=== PATIENT | male | born 1945 | race Caucasian/White ===

== ENCOUNTER 2017-10-07 12:48 | Observation (INO) | payer OTHER ==
[2017-10-07] MEDS ORDERED: METOPROLOL TARTRATE 5 MG/5 ML INJ IV ONE (13:21)
[2017-10-07] MEDS ORDERED: ENOXAPARIN 80 MG/0.8 ML SQ ONE (13:21)
[2017-10-07 13:42] LABS: Absolute Lymphocytes (CBC) 1.8 K/uL (0.7-4.9); Absolute Monocytes 0.7 K/uL (0.1-1.3); Absolute Neutrophil 4.5 K/uL (1.8-8.0); Basophils % 0.8 % (0-1.3); Eosinophils % 1.1 % (0-4.4); Lymphocytes % 24.8 % (15.3-44.8); MCV 93.5 fL (80-100); Monocytes % 10.4 % (3.3-12.3); RBC Red Blood Cell Count 5.34 M/uL (4.33-5.43)
[2017-10-07 13:46] LABS: Protime INR 1.18
[2017-10-07] MEDS ORDERED: METOPROLOL TAR 25 MG TAB ONE (13:56)
[2017-10-07 14:00] LABS: Albumin 4.2 g/dL (3.4-5.0); Bilirubin Direct 0.8 mg/dL (0-0.2); Bilirubin Total 2.4 mg/dL (0.2-1.0); CKMB Creatine Kinase MB 4.2 ng/mL (0.3-3.6); Magnesium 2.2 mg/dL (1.8-2.4); Potassium 3.9 mmol/L (3.5-5.1); Protein, Total 7.4 g/dL (6.4-8.2)
[2017-10-07] MEDS ORDERED: ASPIRIN 81 MG CHEWABLE TABLET ONE (14:12)
--- NOTE | 2017-10-07 14:21 | RAD REPORT ---
EXAM DESCRIPTION: RAD - Chest Single View - 10/07/2017 2:03 pm CLINICAL HISTORY: CHEST PAIN Chest pain. COMPARISON: CHEST SINGLE VIEW dated 08/16/2014 FINDINGS: Portable technique limits examination quality. Moderate pleural and parenchymal opacification in the right base is noted, probably representing pneu monia with pleural effusion. Significant cardiomegaly seen. No displaced fractures. IMPRESSION: Right lung base pleural and parenchymal opacification likely represents pneumonia.
[2017-10-07] MEDS ORDERED: ONDANSETRON 4 MG/2 ML VIAL IV PRN (14:25)
[2017-10-07] MEDS ORDERED: ACETAMINOPHEN 500 MG TAB PO PRN (14:25)
--- NOTE | 2017-10-07 14:46 | EDPHYS ---
Physician Documentation [facility] Name: Omid Huerta Age: 72 yrs Sex: Male : 1945 Arrival Date: 10/07/2017 Time: 12:52 Bed 3 Private MD: ED Physician Onesimo Dunn HPI: 10/08 07:11 This 72 yrs old Male presents to ER via Ambulatory with complaints of Fast kdr Heart Rate. 07:11 The patient presents with a history of irregular heart beat, heart racing. Context: The kdr symptoms occur at rest. Onset: The symptoms/episode began/occurred at an unknown time. Duration: The patient or guardian reports a single episode, that is still ongoing. Associated signs and symptoms: Pertinent positives: Abdominal pain. Severity of symptoms: At their worst the symptoms were mild in the emergency department the symptoms are unchanged. The patient has not experienced similar symptoms in the past. The patient has been recently seen by a physician: That patient had gone to the [place] because his stomach was hurting and they took his VS and sent him to the ED. Historical: - Allergies: 10/07 13:02 No Known Allergies; aj1 - Home Meds: 13:02 None [Active]; aj1 - PMHx: 13:02 None; aj1 - PSHx: 13:02 None; aj1 - Immunization history:: Flu vaccine is not up to date. - Social history:: Smoking status: Patient/guardian denies using tobacco. - Ebola Screening: : Patient denies travel to an Ebola-affected area in the 21 days before illness onset. ROS: 10/08 07:11 Constitutional: Negative for fever, chills, and weight loss, Eyes: Negative for injury, kdr pain, redness, and discharge, ENT: Negative for injury, pain, and discharge, Neck: Negative for injury, pain, and swelling, Respiratory: Negative for shortness of breath, cough, wheezing, and pleuritic chest pain, Abdomen/GI: Negative for abdominal pain, nausea, vomiting, diarrhea, and constipation, Back: Negative for injury and pain, : Negative for injury, bleeding, discharge, and swelling, MS/Extremity: Negative for injury and deformity, Skin: Negative for injury, rash, and discoloration, Neuro: Negative for headache, weakness, numbness, tingling, and seizure activity. Psych: Negative for depression, anxiety, suicide ideation, homicidal ideation, and hallucinations, Allergy/Immunology: Negative for hives, rash, and allergies, Endocrine: Negative for neck swelling, polydipsia, polyuria, polyphagia, and marked weight changes, Hematologic/Lymphatic: Negative for swollen nodes, abnormal bleeding, and unusual bruising. Cardiovascular: Positive for palpitations, Negative for edema, orthopnea, palpitations, paroxysmal nocturnal dyspnea. Exam: 07:11 Constitutional: This is a well developed, well nourished patient who is awake, alert, kdr and in no acute distress. Head/Face: Normocephalic, atraumatic. Eyes: Pupils equal round and reactive to light, extra-ocular motions intact. Lids and lashes normal. Conjunctiva and sclera are non-icteric and not injected. Cornea within normal limits. Periorbital areas with no swelling, redness, or edema. Neck: Trachea midline, no thyromegaly or masses palpated, and no cervical lymphadenopathy. Supple, full range of motion without nuchal rigidity, or vertebral point tenderness. No Meningismus. Chest/axilla: Normal chest wall appearance and motion. Nontender with no deformity. No lesions are appreciated. Respiratory: Lungs have equal breath sounds bilaterally, clear to auscultation and percussion. No rales, rhonchi or wheezes noted. No increased work of breathing, no retractions or nasal flaring. Abdomen/GI: Soft, non-tender, with normal bowel sounds. No distension or tympany. No guarding or rebound. No evidence of tenderness throughout. Back: No spinal tenderness. No costovertebral tenderness. Full range of motion. Skin: Warm, dry with normal turgor. Normal color with no rashes, no lesions, and no evidence of cellulitis. MS/ Extremity: Pulses equal, no cyanosis. Neurovascular intact. Full, normal range of motion. Neuro: Awake and alert, GCS 15, oriented to person, place, time, and situation. Cranial nerves II-XII grossly intact. Motor strength 5/5 in all extremities. Sensory grossly intact. Cerebellar exam normal. Normal gait. Psych: Awake, alert, with orientation to person, place and time. Behavior, mood, and affect are within normal limits. 07:11 Cardiovascular: Rate: tachycardic, Rhythm: irregularly irregular, Pulses: no pulse deficits are appreciated, Heart sounds: normal, Edema: is not appreciated, JVD: is not appreciated. Vital Signs: 10/07 13:02 BP 174 / 137; Pulse 148; Resp 20; Temp 98.8; Pulse Ox 96% on R/A; Weight 83.91 kg (R); aj1 Height 6 ft. 0 in. (182.88 cm) (R); Pain 0/10; 13:30 BP 176 / 102; Pulse 96; Resp 18; Pulse Ox 98% on R/A; sv 14:03 BP 126 / 98; Pulse 72; Resp 20; Pulse Ox 97% on R/A; sv 15:25 BP 122 / 95; Pulse 74; Resp 19; Pulse Ox 97% on R/A; sv 13:02 Body Mass Index 25.09 (83.91 kg, 182.88 cm) aj1 MDM: 14:45 Patient medically screened. kdr 10/08 07:11 Data reviewed: vital signs, nurses notes, lab test result(s), EKG, radiologic studies. kdr Counseling: I had a detailed discussion with the patient and/or guardian regarding: the historical points, exam findings, and any diagnostic results supporting the discharge/admit diagnosis, lab results, radiology results, the need for further work-up and treatment in the hospital. 10/07 13:27 Order name: Basic Metabolic Panel; Complete Time: 14:14 kdr 10/07 13:27 Order name: CBC with Diff; Complete Time: 13:59 kdr 10/07 13:27 Order name: Ckmb; Complete Time: 14:14 kdr 10/07 13:27 Order name: CPK; Complete Time: 14:14 kdr 10/07 13:27 Order name: LFT's; Complete Time: 14:14 kdr 10/07 13:27 Order name: Magnesium; Complete Time: 14:14 kdr 10/07 13:27 Order name: NT PRO-BNP; Complete Time: 14:14 kdr 10/07 13:27 Order name: PT-INR; Complete Time: 13:59 kdr 10/07 13:27 Order name: Ptt, Activated; Complete Time: 13:59 kdr 10/07 13:27 Order name: Troponin (emerg Dept Use Only); Complete Time: 14:14 kdr 10/07 14:36 Order name: Procalcitonin EDMS 10/07 14:36 Order name: Thyroid Stimulating Hormone EDMS 10/07 14:36 Order name: T4 Free EDMS 10/07 14:36 Order name: Thyroid Stimulating Hormone EDMS 10/07 14:36 Order name: Urinalysis EDMS 10/07 14:36 Order name: CBC with Automated Diff EDMS 10/07 14:36 Order name: CBC with Automated Diff EDMS 10/07 14:36 Order name: CBC with Automated Diff EDMS 10/07 14:36 Order name: CBC with Automated Diff EDMS 10/07 14:36 Order name: CKMB Creatine Kinase MB EDMS 10/07 14:36 Order name: CKMB Creatine Kinase MB EDMS 10/07 14:36 Order name: CKMB Creatine Kinase MB EDMO 10/07 14:36 Order name: Comprehensive Metabolic Panel EDMO 10/07 14:36 Order name: Comprehensive Metabolic Panel EDMO 10/07 14:36 Order name: Comprehensive Metabolic Panel EDMO 10/07 14:36 Order name: Comprehensive Metabolic Panel EDMO 10/07 14:36 Order name: Creatine Phosphokinase EDMO 10/07 14:37 Order name: Creatine Phosphokinase EDMO 10/07 14:37 Order name: Creatine Phosphokinase EDMO 10/07 13:27 Order name: XRAY Chest (1 view) kdr 10/07 13:27 Order name: EKG; Complete Time: 13:28 kdr 10/07 13:27 Order name: Cardiac monitoring; Complete Time: 13:37 kdr 10/07 13:27 Order name: EKG - Nurse/Tech; Complete Time: 13:37 kdr 10/07 13:27 Order name: IV Saline Lock; Complete Time: 13:37 kdr 10/07 13:27 Order name: Labs collected and sent; Complete Time: 13:37 kdr 10/07 13:27 Order name: O2 Per Protocol; Complete Time: 13:37 kdr 10/07 13:47 Order name: US Extremity Venous W Compression Daren kdr 10/07 14:06 Order name: EKG; Complete Time: 14:06 sv 10/07 14:16 Order name: CT Chest For PE Angio kdr 10/07 14:36 Order name: CONS Physician Consult EDMO 10/07 14:36 Order name: Respiratory Therapy Consult EDMO 10/07 14:36 Order name: Heart Healthy EDMO 10/07 14:36 Order name: Echo with Doppler EDMO 10/07 14:37 Order name: Lipid Profile [facility] 10/07 14:37 Order name: Lipid Profile [facility] 10/07 14:37 Order name: Magnesium [facility] 10/07 14:37 Order name: Magnesium [facility] 10/07 14:37 Order name: Magnesium [facility] 10/07 14:37 Order name: Magnesium [facility] 10/07 14:37 Order name: Troponin I [facility] 10/07 14:37 Order name: Troponin I [facility] 10/07 14:37 Order name: Troponin I [facility] 10/07 14:37 Order name: Blood Culture [facility] 10/07 14:37 Order name: Chest Pa And Lat (2 Views) [facility] 10/07 14:37 Order name: Chest Pa And Lat (2 Views) [facility] 10/07 13:27 Order name: O2 Sat Monitoring; Complete Time: 13:37 kdr 10/07 14:06 Order name: EKG - Nurse/Tech; Complete Time: 16:33 sv Administered Medications: 10/07 13:20 Drug: Lopressor 5 mg Route: IVP; Site: right antecubital; sv 13:35 Follow up: Response: No adverse reaction sv 13:20 Drug: Lovenox 1 mg/kg Route: Sub-Q; Site: right lower abdomen; sv 13:49 Follow up: Response: No adverse reaction sv 13:44 Drug: Lopressor 2.5 mg Route: IVP; Site: right antecubital; sv 14:04 Follow up: Response: No adverse reaction sv 13:49 CANCELLED (Duplicate Order): Lopressor 5 mg IVP every 5 minutes; Hold for SBP < 100 or sv HR < 60. x3 13:55 Drug: Lopressor 25 mg Route: PO; sv 14:05 Follow up: Response: No adverse reaction sv 14:25 Drug: Aspirin Chewable Tablet 324 mg Route: PO; sv 14:57 Follow up: Response: No adverse reaction sv Disposition: 10/07/17 14:45 Hospitalization ordered by Fercho Domingo for Inpatient Admission. Preliminary diagnosis is Atrial fibrillation, hypertension. - Bed requested for Telemetry/MedSurg (Inpatient). - Status is Inpatient Admission. sv - Condition is Fair. - Problem is an ongoing problem. - Symptoms have improved. UTI on Admission? No Signatures: Dispatcher [employer] Emerald Cruz RN RN aj1 Ruby Navarro RN RN sv Onesimo Dunn MD MD [facility] Shasta Strong Corrections: (The following items were deleted from the chart) 13:49 13:43 Lopressor 5 mg IVP every 5 minutes; Hold for SBP < 100 or HR < 60. x3 ordered. kdrsv 14:37 14:36 T4 Free ordered. EDMS EDMS 15:04 14:45 Hospitalization Ordered by Fercho Domingo DO for Inpatient Admission. Preliminary ag diagnosis is Atrial fibrillation, hypertension. Bed requested for Telemetry/MedSurg (Inpatient). Status is Inpatient Admission. Condition is Fair. Problem is an ongoing problem. Symptoms have improved. UTI on Admission? No. kdr 15:49 15:04 10/07/2017 14:45 Hospitalization Ordered by Fercho Domingo DO for Inpatient sv Admission. Preliminary diagnosis is Atrial fibrillation, hypertension. Bed requested for Telemetry/MedSurg (Inpatient). Status is Inpatient Admission. Condition is Fair. Problem is an ongoing problem. Symptoms have improved. UTI on Admission? No. ag
--- NOTE | 2017-10-07 14:46 | ER ---
Nurse's Notes [facility] Name: Omid Huerta Age: 72 yrs Sex: Male : 1945 Arrival Date: 10/07/2017 Time: 12:52 Bed 3 Private MD: Diagnosis: Atrial fibrillation, hypertension Presentation: 10/07 13:00 Presenting complaint: Patient states: He went to see his doctor because his stomach was aj1 hurting but when he got there his doctor said that his heart rate was too high and to come the the ER. Denies CP. Reports SOB. Transition of care: patient was not received from another setting of care. Onset of symptoms was October 07, 2017. Risk Assessment: Do you want to hurt yourself or someone else? Patient reports no desire to harm self or others. Initial Sepsis Screen: Does the patient meet any 2 criteria? HR > 90 bpm. No. Patient's initial sepsis screen is negative. Does the patient have a suspected source of infection? No. Patient's initial sepsis screen is negative. Care prior to arrival: None. 13:00 Method Of Arrival: Ambulatory aj1 13:00 Acuity: LAQUITA 2 aj1 Triage Assessment: 13:02 General: Appears in no apparent distress. comfortable, Behavior is calm, cooperative, aj1 appropriate for age. Pain: Denies pain. Neuro: Level of Consciousness is awake, alert, obeys commands. Cardiovascular: Patient's skin is warm and dry. Respiratory: Airway is patent Respiratory effort is even, unlabored, Respiratory pattern is regular, symmetrical. GI: Reports bloating. Derm: Skin is pink, warm \T\ dry. normal. Historical: - Allergies: 13:02 No Known Allergies; aj1 - Home Meds: 13:02 None [Active]; aj1 - PMHx: 13:02 None; aj1 - PSHx: 13:02 None; aj1 - Immunization history:: Flu vaccine is not up to date. - Social history:: Smoking status: Patient/guardian denies using tobacco. - Ebola Screening: : Patient denies travel to an Ebola-affected area in the 21 days before illness onset. Screenin:10 Abuse screen: Denies threats or abuse. Denies injuries from another. Nutritional sv screening: No deficits noted. Tuberculosis screening: No symptoms or risk factors identified. Fall Risk None identified. Assessment: 13:10 General: Appears in no apparent distress. comfortable, Behavior is calm, cooperative, sv appropriate for age. Pain: Denies pain. Neuro: Level of Consciousness is awake, alert, obeys commands, Oriented to person, place, time, situation, Moves all extremities. Full function Gait is steady, Speech is normal. Cardiovascular: Heart tones S1 S2 present Patient's skin is warm and dry. Pulses are 3+ in right radial artery and left radial artery Edema is 2+ to left midcalf, left ankle, left foot, left toes, right midcalf, right ankle, right foot and right toes pitting to left midcalf, left ankle, left foot, left toes, right midcalf, right ankle, right foot and right toes Rhythm is atrial fibrillation with rapid ventricular response. Respiratory: Airway is patent Respiratory effort is even, unlabored, Respiratory pattern is regular, symmetrical, Breath sounds are clear bilaterally. Denies shortness of breath. GI: Abdomen is flat, Reports problems eating at times. Derm: Skin is pink, warm \T\ dry. Musculoskeletal: Range of motion: intact in all extremities. 13:44 Reassessment: Patient appears in no apparent distress at this time. Patient and/or sv family updated on plan of care and expected duration. Pain level reassessed. Patient is alert, oriented x 3, equal unlabored respirations, skin warm/dry/pink. 14:25 Reassessment: Patient appears in no apparent distress at this time. Patient and/or sv family updated on plan of care and expected duration. Pain level reassessed. Patient is alert, oriented x 3, equal unlabored respirations, skin warm/dry/pink. Patient states symptoms have improved. 15:15 Reassessment: Patient appears in no apparent distress at this time. Patient and/or sv family updated on plan of care and expected duration. Pain level reassessed. Patient is alert, oriented x 3, equal unlabored respirations, skin warm/dry/pink. Patient states symptoms have improved. Vital Signs: 13:02 BP 174 / 137; Pulse 148; Resp 20; Temp 98.8; Pulse Ox 96% on R/A; Weight 83.91 kg (R); aj1 Height 6 ft. 0 in. (182.88 cm) (R); Pain 0/10; 13:30 BP 176 / 102; Pulse 96; Resp 18; Pulse Ox 98% on R/A; sv 14:03 BP 126 / 98; Pulse 72; Resp 20; Pulse Ox 97% on R/A; sv 15:25 BP 122 / 95; Pulse 74; Resp 19; Pulse Ox 97% on R/A; sv 13:02 Body Mass Index 25.09 (83.91 kg, 182.88 cm) aj1 Vitals: 13:30 Cardiac Rhythm Assessment Atrial fibrillation. sv 14:26 Cardiac Rhythm Assessment Atrial flutter. sv ED Course: 12:52 Patient arrived in ED. mr 13:02 Triage completed. aj1 13:02 Arm band placed on Patient placed in an exam room, on electronic device monitor, on pulse aj1 oximetry. 13:10 Onesimo Dunn MD is Attending Physician. kdr 13:10 Patient has correct armband on for positive identification. Placed in gown. Bed in low sv position. security monitor on. Pulse ox on. NIBP on. Door closed. Head of bed elevated. 13:10 Initial lab(s) drawn, by hi, sent to lab. Inserted saline lock: 18 gauge in right sv antecubital area, using aseptic technique. ,using aseptic technique. done by Dorie STRINGER Blood collected. 13:15 Ruby Navarro, SIOMARA is Primary Nurse. sv 13:19 EKG done, by help desk technician. reviewed by Onesimo Dunn MD. sm3 13:56 X-ray(s) taken. sv 14:01 X-ray completed. Portable x-ray completed in exam room. Patient tolerated procedure kw well. 14:03 XRAY Chest (1 view) In Process Unspecified. EDMS 14:24 EKG done, by help desk technician. reviewed by Onesimo Dunn MD. sm3 14:40 CT Chest For PE Angio In Process Unspecified. EDMS 14:41 Patient taken to ultrasound. mw3 14:44 Fercho Domingo DO is Hospitalizing Provider. kdr 14:56 Ultrasound completed. Patient tolerated well. Patient moved back from ultrasound. aa4 14:57 US Extremity Venous W Compression Daren In Process Unspecified. EDMS 15:25 No provider procedures requiring assistance completed. Patient admitted, IV remains in sv place. intact. Administered Medications: 13:20 Drug: Lopressor 5 mg Route: IVP; Site: right antecubital; sv 13:35 Follow up: Response: No adverse reaction sv 13:20 Drug: Lovenox 1 mg/kg Route: Sub-Q; Site: right lower abdomen; sv 13:49 Follow up: Response: No adverse reaction sv 13:44 Drug: Lopressor 2.5 mg Route: IVP; Site: right antecubital; sv 14:04 Follow up: Response: No adverse reaction sv 13:49 CANCELLED (Duplicate Order): Lopressor 5 mg IVP every 5 minutes; Hold for SBP < 100 or sv HR < 60. x3 13:55 Drug: Lopressor 25 mg Route: PO; sv 14:05 Follow up: Response: No adverse reaction sv 14:25 Drug: Aspirin Chewable Tablet 324 mg Route: PO; sv 14:57 Follow up: Response: No adverse reaction sv Outcome: 14:45 Decision to Hospitalize by Provider. kdr 15:24 Admitted to Tele accompanied by tech, via stretcher, room 423, with chart, Report sv called to Marcelina STRINGER 15:24 Condition: stable 15:24 Instructed on the need for admit. 15:49 Patient left the ED. sv Signatures: Dispatcher [employer] EDMS Emerald Dsouza RN RN ajRuby Raygoza RN RN sv Onesimo Dunn MD MD kdr Rivera, Maria mr Frazier, Amanda aa4 Britta Kiran Shakira sm3 Cha Jones mw3 Corrections: (The following items were deleted from the chart) 14:41 14:40 Patient moved to radiology mw3 mw3
--- NOTE | 2017-10-07 14:54 | RAD REPORT ---
EXAM DESCRIPTION: CT - Chest For Pe Angio - 10/07/2017 2:40 pm CLINICAL HISTORY: Chest pain. DYSPNEA COMPARISON: Chest Single View dated 10/07/2017; CTANGIO AORTA FOR DISSECTION dated 08/17/2014 TECHNIQUE: CT angiogram of the pulmonary arteries was performed with MIP. All CT scans are performed using dose optimization technique as appropriate and may include automated exposure control or mA/KV adjustment according to patient size. FINDINGS: No evidence of pulmonary thromboembolism. Marked cardiomegaly is identified. Moderate to large right pleural effusion is seen with compressive atelectasis versus pneumonia in the right base. The left lung is grossly clear. No left-sided pleural effusion or pericardial effusion. No concerning bony finding. IVC and hepatic veins appears enlarged suggesting passive congestion of t he liver. IMPRESSION: No evidence of pulmonary thromboembolism. Moderate to large right pleural effusion with compressive atelectasis or pneumonia in the right base. Marked cardiomegaly.
--- NOTE | 2017-10-07 15:04 | RAD REPORT ---
EXAM DESCRIPTION: VAS - Extrem Venous W Compress Daren - 10/07/2017 2:57 pm CLINICAL HISTORY: a-fib/swelling Bilateral leg edema and swelling. COMPARISON: No comparisons TECHNIQUE: Real-time sonographic interrogation of the left and right lower extremity deep venous sys tems was performed. FINDINGS: Normal compressibility, flow augmentation, phasic flow and spontaneous flow is identified in both the left and right lower extremity deep venous systems. IMPRESSION: No sonographic evidence of left or right lower extremity deep venous thrombosis.
[2017-10-07] MEDS ORDERED: ONDANSETRON 4 MG/2 ML VIAL ONE (15:06)
--- NOTE | 2017-10-07 15:06 | EKG ---
Test Date: 2017-10-07 Test Time: 14:16:45 Virologist: TAMIKA MEASUREMENT RESULTS: Intervals: Rate: 72 NE: QRSD: 100 QT: 416 QTc: 455 [place]: P: NE: QRS: -1 T: 122 INTERPRETIVE STATEMENTS: poss a flutter Voltage criteria for left ventricular hypertrophy T wave abnormality, consider lateral ischemia Abnormal ECG Compared to ECG 10/07/2017 13:11:30 T-wave abnormality now present Possible ischemia now present Early repolarization no longer present Electronically Signed On 10-07-17 15:06:01 CDT by Mamadou Salinas
--- NOTE | 2017-10-07 15:07 | EKG ---
Test Date: 2017-10-07 Test Time: 13:11:30 Heavy Duty Press Operator: TAMIKA MEASUREMENT RESULTS: Intervals: Rate: 99 [place]: QRSD: 86 QT: 356 QTc: 456 [place]: P: AK: QRS: -4 T: 130 INTERPRETIVE STATEMENTS: a fib with rvrLeft ventricular hypertrophy with repolarization abnormality Abnormal ECG Compared to ECG 08/16/2014 22:49:07 Early repolarization now present Sinus rhythm no longer present Electronically Signed On 10-07-17 15:06:27 CDT by Mamadou Salinas
--- NOTE | 2017-10-07 15:13 | P.HP ---
Certification for Inpatient Patient admitted to: Observation With expected LOS: <2 Midnights Patient will require the following post-hospital care: Home Health Services Practitioner: I am a practitioner with admitting privileges, knowledge of patient current condition, hospital course, and medical plan of care. Services: Services provided to patient in accordance with Admission requirements found in Title 42 Section 412.3 of the Code of Federal Regulations Patient History Date of Service: 10/07/17 Primary Care Provider: [facility] Reason for admission: Abnormal HR History of Present Illness: 72-year-old male presented to the emergency room with abnormal heart rate. Patient was seen at the [facility] earlier in the day. Patient found to have accelerated heart rate. Patient denied any significant chest pain, shortness of breath. Patient does report a history of hypertension. Patient had been taking medication but reports that he has not been taking medication since July of 2016. Patient denies any palpitations. Patient has noted edema to the lower extremity. In the ER patient evaluated. Patient blood pressure was 174/130 sat. Heart was irregular irregular with a rate of 140. Patient found to be in atrial fibrillation. Patient was given 2 doses of Lopressor IV. Blood pressure and heart rate improved. Patient remained stable. White count 7.2, hemoglobin 16. Sodium 144, potassium 3.9, BUN of 20, creatinine 1.1 with a GFR 66. BNP 29368 and 58[address] 0[address] scan shows moderate to large right pleural effusion. Venous Doppler lower extremity showed no DVT. Patient was admitted for further evaluation. When I saw the patient ER, he appeared comfortable. Blood pressure and heart rate much improved. Rate was now 72. Blood pressure now better controlled. Patient with history of former tobacco use. Allergies No Known Drug Allergies Allergy (Unverified 08/17/14 03:35) Unknown Home medications list reviewed: Yes Home Medications: Aspirin 650 mg PO DAILY PRN 08/17/14 Levofloxacin [Levaquin] 500 mg PO DAILY #10 tablet 08/17/14 Losartan Potassium [Cozaar] 50 mg PO DAILY #30 tablet 08/17/14 Metoprolol Tartrate [Lopressor*] 25 mg PO BID 6AM 6PM #60 tab 08/17/14 Pantoprazole [Protonix Tab*] 40 mg PO DAILY #30 tab 08/17/14 Psyllium Husk/Aspartame [Metamucil Sugar Free Powder] 432 gm PO DAILY 08/17/14 Triamcinolone Acetonide [Nasacort] 10.8 ml NS DAILY 08/17/14 - Past Medical/Surgical History Diabetic: No -: Hypertension -: Tonsillectomy, 195 Psychosocial/ Personal History: Patient is a . He lives by himself. He has no children. - Family History Family History: Reviewed- Non-Contributory - Social History Smoking Status: Former smoker Alcohol use: Yes CD- Drugs: No Caffeine use: No Place of Residence: Home Review of Systems General: As per HPI Eyes: Unremarkable ENT: Unremarkable Respiratory: Unremarkable Cardiovascular: Edema, As per HPI Gastrointestinal: Unremarkable Genitourinary: Unremarkable Musculoskeletal: Unremarkable Integumentary: As per HPI Neurological: Unremarkable Lymphatics: Unremarkable Physical Examination - Physical Exam General: Alert, In no apparent distress, Oriented x3, Cooperative HEENT: Atraumatic, Normocephalic, Mucous membr. moist/pink Neck: Supple, No Thyromegaly Respiratory: Crackles/rales (To the right side) Cardiovascular: Normal pulses, Regular rate/rhythm Gastrointestinal: Normal bowel sounds, Soft and benign, Non-distended, No tenderness, No masses, No rebound, No guarding Musculoskeletal: No erythema, No tenderness, No warmth Integumentary: Tenderness/swelling (2+ pitting edema to lower extremities bilateral below the knees.) Neurological: Normal speech, Normal strength at 5/5 x4 extr, Normal tone, Normal affect - Studies Laboratory Data (last 24 hrs) 10/07/17 13:15: PT 13.9 H, INR 1.18, APTT 29.0 10/07/17 13:15: WBC 7.2, Hgb 16.6, Hct 50.0 H, Plt Count 232 10/07/17 13:15: Sodium 144, Potassium 3.9, BUN 20 H, Creatinine 1.10, Glucose 86 , Magnesium 2.2, Total Bilirubin 2.4 H, AST 31, ALT 38, Alkaline Phosphatase 62 Assessment and Plan - Problems (Diagnosis) (1) Atrial fibrillation and flutter Current Visit: Yes Status: Acute Plan: New onset atrial fibrillation noted. Rate now better controlled after receiving Lopressor. Case discussed with cardiology. Will start metoprolol 50 mg 1 pill twice daily. Patient has been started on Lovenox at 1 milligram/kilogram subcu twice daily. Will order echocardiogram to further assess. Will place on a 1500 cc per day fluid restriction. Lasix 20 mg IV twice daily has been started. Will continue monitor and adjust appropriately. Will monitor cardiac enzymes. Will recheck chest x-ray in the morning. Will check tsh. I will turn the service over to Dr. Chong tomorrow. I will go over the plan of care with her. (2) CHF (congestive heart failure) Current Visit: Yes Status: Acute Plan: Patient likely with acute on chronic systolic CHF. Will start fluid restriction , Lasix IV. Will check echocardiogram. Case discussed with cardiology. Qualifiers: Heart failure type: systolic Heart failure chronicity: acute on chronic Qualified Code(s): I50.23 - Acute on chronic systolic (congestive) heart failure (3) Hypertension Current Visit: Yes Status: Chronic Plan: Patient had been using medication the past. He last use medication July 2016. Will start metoprolol. Will monitor and adjust appropriately. Qualifiers: Hypertension type: essential hypertension Qualified Code(s): I10 - Essential (primary) hypertension (4) Pleural effusion Current Visit: Yes Status: Acute Plan: Pleural effusion likely related to CHF. Doubt pneumonia. Will check pro calcitonin. White count unremarkable. Will continue as above. (5) Edema Current Visit: Yes Status: Acute Plan: Secondary to CHF. Will continue as above. Will monitor closely. Qualifiers: Edema type: unspecified Qualified Code(s): R60.9 - Edema, unspecified Discharge Plan: Home Plan to discharge in: 48 Hours - Advance Directives Does patient have a Living Will: No Does patient have a Durable POA for Healthcare: No - Code Status/Comfort Care Code Status Assessed: Yes (Patient full code.) Time Spent Managing Pts Care (In Minutes): 55
--- NOTE | 2017-10-07 16:07 | ECHO ---
HEIGHT: 6 ft 0 in WEIGHT: 185 lb 0 oz DATE OF STUDY: 10/07/[address]: Fercho Domingo DO 2-DIMENSIONAL: YES M.MODE: YES DOPPLER: YES COLOR FLOW: YES TDS: PORTABLE: DEFINITY: BUBBLE STUDY: DIAGNOSIS: NEW ONESET ATRIAL FIBRILLATION, AND CONGESTIVE HEART FAILURE. CARDIAC HISTORY: CATHERIZATION: NO SURGERY: NO PROSTHETIC VALVE: NO PACEMAKER: NO MEASUREMENTS (cm) DIASTOLIC (NORMALS) SYSTOLIC (NORMALS) IVSd 1.3 (0.6-1.2) LA Diam 5.2 (1.9-4.0) LVEF 17% LVIDd 3.9 (3.5-5.7) LVIDs 3.6 (2.0-3.5) %FS 8% LVPWd 1.4 (0.6-1.2) Ao Diam 3.1 (2.0-3.7) 2 DIMENSIONAL ASSESSMENT: RIGHT ATRIUM: DILATED LEFT ATRIUM: DILATED RIGHT VENTRICLE: DILATED LEFT VENTRICLE: DILATED TRICUSPID VALVE: NORMAL MITRAL VALVE: NORMAL PULMONIC VALVE: NORMAL AORTIC VALVE: NORMAL PERICARDIAL EFFUSION: NONE AORTIC ROOT: NORMAL LEFT VENTRICULAR WALL MOTION: SEVERE GLOBAL HYPOKINESIS. DOPPLER/COLOR FLOW: MILD MITRAL REGURGITATION, AORTIC REGURGITATION, AND TRICUSPID REGURGITATION. COMMENTS: MILD MITRAL REGURGITATION, AORTIC REGURGITATION, AND TRICUSPID REGURGITATION. SEVERE GLOBAL HYPOKINESIS. FOUR CHAMBER DILATATION. NO THROMBUS. TECHNOLOGIST: PAUL DICKSON
[2017-10-07 16:25] VITALS: BMI 25.0
[2017-10-07] MEDS: FUROSEMIDE 20 MG/ 2ML VIAL IV SCH (16:26)
[2017-10-07 17:28] LABS: Thyroid Stimulating Hormone 5.1 uIU/mL (0.36-3.74)
[2017-10-07] MEDS ORDERED: PNEUMOCOCCAL VACCINE 0.5 ML IMVAC ONE (18:00)
[2017-10-07] MEDS: METOPROLOL TAR 50 MG TAB PO SCH (20:44)
[2017-10-07] MEDS: SACUBITRIL/VALSARTAN 24/26 MG TAB PO SCH (20:44)
[2017-10-07] MEDS: ENOXAPARIN 80 MG/0.8 ML SQ SCH (20:44)
[2017-10-07] MEDS ORDERED: ATORVASTATIN 40 MG TAB PO SCH (21:00)
[2017-10-07 22:02] LABS: CKMB Creatine Kinase MB 3.7 ng/mL (0.3-3.6)
[2017-10-08 05:57] LABS: Absolute Lymphocytes (CBC) 2.4 K/uL (0.7-4.9); Absolute Monocytes 0.7 K/uL (0.1-1.3); Absolute Neutrophil 3.6 K/uL (1.8-8.0); Basophils % 0.6 % (0-1.3); Eosinophils % 0.6 % (0-4.4); Hematocrit 45.6 % (39.6-49.0); Lymphocytes % 35.6 % (15.3-44.8); MCH 31.6 pg (27.0-35.0); MCV 93.4 fL (80-100); MPV 9.4 fL (7.6-11.3); Monocytes % 10.2 % (3.3-12.3); RBC Red Blood Cell Count 4.89 M/uL (4.33-5.43)
[2017-10-08 06:14] LABS: Albumin 3.3 g/dL (3.4-5.0); Bilirubin Total 2.1 mg/dL (0.2-1.0); CKMB Creatine Kinase MB 3.1 ng/mL (0.3-3.6); Potassium 4.1 mmol/L (3.5-5.1); Protein, Total 5.8 g/dL (6.4-8.2)
--- NOTE | 2017-10-08 06:50 | CON ---
Date of Consultation: 10/08/2017 Reason For Consultation: New onset congestive heart failure. History Of Present Illness: Mr. Huerta is a 72-year-old without any significant past cardiac histor y. He has history of hypertension, gastroesophageal reflux disease. He is typically followed by the [facility]. He was seen there for regular followup and was noted to have a rapid heart rate, was s ent to the emergency room and was found to be in atrial fibrillation with rapid ventricular response. An echocardiogram that was done in the emergency room noted to have severe cardiomyopathy with an e jection fraction of 17%. The patient is asymptomatic with that. Chest x-ray showed possible pneumon ia, though there is no evidence of that currently. He had a venous Doppler, which was normal. A CT angiogram of his chest, which was basically negative. The patient denies chest pain, shortness of br eath, palpitation, nausea, vomiting, diaphoresis, PND, orthopnea, pedal edema, palpitations, or synco pe. Allergies: NONE. Review of Systems: Negative. Social History: Negative for tobacco, alcohol, or drug use. Past Medical History: Includes hypertension and gastroesophageal reflux disease. Medications: At home include aspirin, losartan, metoprolol, Protonix. He takes Nasacort and Metamuc il. Physical Examination: General: He was in atrial fibrillation with rapid ventricular response. HEENT Exam: Negative. Neck: Supple. No bruit. Chest: Clear. Cardiac Exam: Revealed atrial fibrillation. Abdomen: Benign. Extremities: Revealed no clubbing, cyanosis, or edema. Diagnostic Data: Listed earlier. Impression And Plan: 1.Acute onset of systolic congestive heart failure. 2.Atrial fibrillation. 3.Hypertension. 4.Gastroesophageal reflux disease. Mr. Huerta's ejection fraction is very concerning and worrisome. We can put him on Lovenox for now and beta-carmen. Then, I was asked to start Entresto. He should probably be on a low dose Lasix as well. We will need an outpatient heart catheterization to evaluate him for coronary artery disease as a possible cause of his cardiomyopathy. This certainly can be done as an outpatient, but we will see how he does over the next day or 2. Probably, we should anticoagulate with Xarelto and Eliquis w sarahye he is awaiting a heart catheterization. We are hoping that the beta-blockers and Entresto will help the ejection fraction improve, otherwise he will be a candidate for the defibrillator. His bloo d pressure is fairly well controlled. He is discussed with Dr. Domingo. I will follow the patient jenna velazquez. ESTEPHANIA/JEREMIAH Voice ID: [id number] Report ID: [id number]
[2017-10-08] MEDS ORDERED: PANTOPRAZOLE 40MG TABLET PO SCH (07:30)
--- NOTE | 2017-10-08 08:38 | RAD REPORT ---
EXAM DESCRIPTION: RAD - Chest Pa And Lat (2 Views) - 10/08/2017 7:23 am CLINICAL HISTORY: Follow up RLL pneumonia/CHF Chest pain. COMPARISON: Chest Single View dated 10/07/2017; CHEST SINGLE VIEW dated 08/16/2014; Chest For Pe Angio dated 10/07/2017 FINDINGS: Moderate right pleural effusion with the right lung base opacification is again noted, unc hanged. The lungs are otherwise hyperexpanded. The heart is moderately enlarged. No displaced fractur es. IMPRESSION: No significant change in right lung base pleural and parenchymal opacification.
[2017-10-08] MEDS: ENOXAPARIN 80 MG/0.8 ML SQ SCH (09:06)
[2017-10-08] MEDS: FUROSEMIDE 20 MG/ 2ML VIAL IV SCH (09:07)
[2017-10-08] MEDS: METOPROLOL TAR 50 MG TAB PO SCH (09:08)
[2017-10-08] MEDS: SACUBITRIL/VALSARTAN 24/26 MG TAB PO SCH (10:32)
[2017-10-08 12:23] VITALS: BP 146/96; TEMP 97.1
--- NOTE | 2017-10-08 14:54 | P.DS ---
Admission Date: 10/07/17 Discharge Date: 10/08/17 Primary Care Provider: [facility] Disposition: DC HOME/HOME HEALTH CARE Discharge Condition: GOOD Reason for Admission: Abnormal HR Consultations: Cardiology - Problems (1) Atrial fibrillation and flutter Onset Date: 10/08/17 Status: Acute (2) CHF (congestive heart failure) Onset Date: 10/08/17 Status: Acute Qualifiers: Heart failure type: systolic Heart failure chronicity: acute on chronic Qualified Code(s): I50.23 - Acute on chronic systolic (congestive) heart failure (3) Hypertension Onset Date: 10/08/17 Status: Chronic Qualifiers: Hypertension type: essential hypertension Qualified Code(s): I10 - Essential (primary) hypertension (4) Pleural effusion Onset Date: 10/08/17 Status: Acute Brief History of Present Illness: 72-year-old male presented to the emergency room with abnormal heart rate. Patient was seen at the [facility] earlier in the day. Patient found to have accelerated heart rate. Patient denied any significant chest pain, shortness of breath. Patient does report a history of hypertension. Patient had been taking medication but reports that he has not been taking medication since July of 2016. Patient denies any palpitations. Patient has noted edema to the lower extremity. In the ER patient evaluated. Patient blood pressure was 174/130 sat. Heart was irregular irregular with a rate of 140. Patient found to be in atrial fibrillation. Patient was given 2 doses of Lopressor IV. Blood pressure and heart rate improved. Patient remained stable. White count 7.2, hemoglobin 16. Sodium 144, potassium 3.9, BUN of 20, creatinine 1.1 with a GFR 66. BNP 22260 and 58. T[address]onin 0[address]14. [address] scan shows moderate to large right pleural effusion. Venous Doppler lower extremity showed no DVT. Patient was admitted for further evaluation. When I saw the patient ER, he appeared comfortable. Blood pressure and heart rate much improved. Rate was now 72. Blood pressure now better controlled. Patient with history of former tobacco use. Hospital Course: Patient remained stable while here in the hospital Patient was initially admitted to the hospital for having abnormal heart rate was found to have atrial fibrillation with RVR. Was started on metoprolol in the ER along with weight based Lovenox. Cardiology was consulted who recommended the patient continue on the beta-carmen and have an echocardiogram done here in the hospital. Patient's echocardiogram was done with the EF 15%. Patient was thus diagnosed with systolic heart failure. Was started on IV Lasix along with Entresto. Patient was also started on Xarelto for chronic anti coagulation. Patient had marked improvement in his symptoms and was not short of breath anymore and his atrial fibrillation was rate controlled. Cardiology at that point recommended the patient to be discharged home with a prescription for beta carmen, low-dose Lasix, Entresto and Xarelto. The patient will be scheduled for outpatient cardiac catheterization. Patient was notified of the recommendations and thus was discharged home under stable condition. Patient states that he will follow up with the [facility] further for any needs and prescription refill. Prescriptions were sent over to the [facility]. Patient was educated extensively on the disease process diet and exercise along with fluid restriction. Patient demonstrated understanding and thus was discharged home under stable condition Vital Signs/Physical Exam: Temp Pulse Resp BP Pulse Ox 97.1 F 69 20 146/96 H 98 10/08/17 12:00 10/08/17 12:00 10/08/17 12:00 10/08/17 12:00 10/08/17 12:00 General: Alert, In no apparent distress HEENT: Atraumatic, PERRLA, EOMI Neck: Supple, JVD not distended Respiratory: Clear to auscultation bilaterally, Normal air movement Cardiovascular: Regular rate/rhythm, Normal S1 S2 Gastrointestinal: Normal bowel sounds, No tenderness Musculoskeletal: No tenderness, Swelling Integumentary: No rashes Neurological: Normal speech, Normal tone, Normal affect Lymphatics: No axilla or inguinal lymphadenopathy Laboratory Data at Discharge: WBC 6.8 K/uL (4.3-10.9) 10/08/17 05:08 Hgb 15.4 g/dL (13.6-17.9) 10/08/17 05:08 Hct 45.6 % (39.6-49.0) 10/08/17 05:08 Plt Count 217 K/uL (152-406) 10/08/17 05:08 PT 13.9 SECONDS (9.5-12.5) H 10/07/17 13:15 INR 1.18 10/07/17 13:15 APTT 29.0 SECONDS (24.3-36.9) 10/07/17 13:15 Sodium 141 mmol/L (136-145) 10/08/17 05:08 Potassium 4.1 mmol/L (3.5-5.1) 10/08/17 05:08 BUN 26 mg/dL (7-18) H 10/08/17 05:08 Creatinine 1.10 mg/dL (0.55-1.3) 10/08/17 05:08 Glucose 91 mg/dL (74-106) 10/08/17 05:08 Magnesium 2.0 mg/dL (1.8-2.4) 10/08/17 05:08 Total Bilirubin 2.1 mg/dL (0.2-1.0) H 10/08/17 05:08 AST 31 U/L (15-37) 10/08/17 05:08 ALT 35 U/L (12-78) 10/08/17 05:08 Alkaline Phosphatase 47 U/L (45-117) 10/08/17 05:08 Troponin I 0.11 ng/mL (0.0-0.045) H 10/08/17 05:08 Triglycerides 62 mg/dL (<150) 10/08/17 05:08 Cholesterol 105 mg/dL (<200) 10/08/17 05:08 HDL Cholesterol 35 mg/dL (40-60) L 10/08/17 05:08 Cholesterol/HDL Ratio 3.00 10/08/17 05:08 Home Medications: Atorvastatin Calcium [Lipitor] 40 mg PO BEDTIME #30 tab 10/08/17 Furosemide [Lasix] 40 mg PO DAILY #30 tablet 10/08/17 Metoprolol Tartrate [Lopressor*] 50 mg PO BID #60 tab 10/08/17 Rivaroxaban [Xarelto] 20 mg PO DAILY #30 tablet 10/08/17 Sacubitril/Valsartan [Entresto 24 mg-26 mg Tablet] 1 tab PO BID #60 tab New Medications: Atorvastatin Calcium [Lipitor] 40 mg PO BEDTIME #30 tab Furosemide [Lasix] 40 mg PO DAILY #30 tablet Metoprolol Tartrate [Lopressor*] 50 mg PO BID #60 tab Rivaroxaban [Xarelto] 20 mg PO DAILY #30 tablet Sacubitril/Valsartan [Entresto 24 mg-26 mg Tablet] 1 tab PO BID #60 tab Patient Discharge Instructions: Please f.u with PCP and Dr salinas in 1 to 2 days post discharge. -You will need to be scheduled for Heart Catherization in 1 week post discharge. -You are Diagnosed with Congestive Heart Failure with EF of 11% and Atrial Fibrillation. You are at high risk for Heart Attack and Stroke. New medication. Xarelto 20mg Daily. lasix 40mg daily. Metoprolol 50mg BID. Lipitor 40m daily. Entresto Daily Diet: Low sodium Activity: Ad nico Followup: Mamadou Salinas MD [ACTIVE - CAN ADMIT] - 1 Week (call the office to set up appointment for heart cath)
[2017-10-08 15:46] VITALS: O2SAT 98
== END 2017-10-08 13:55 | disposition home health service (06) ==
LOC: ER 12:48 → ERHOLD 14:45 → INTOOBSV 14:45 → 4TH 15:24
PROVIDERS: ADMIT Family Medicine; ATTEND Family Medicine
DX: I48.91 Unspecified atrial fibrillation (principal); I11.0 Hypertensive heart disease with heart failure; I50.23 Acute on chronic systolic (congestive) heart failure; K21.9 Gastro-esophageal reflux disease without esophagitis; Z87.891 Personal history of nicotine dependence
CPT/HCPCS: 36415; 71045; 71046; 71275; 80048; 80053; 80061; 80076; 82550 ×3; 82553 ×3; 83735 ×2; 83880; 84145; 84439; 84443; 84484 ×3; 85025 ×2; 85610; 85730; 87040 ×2; 93005 ×2; 93306; 93970; 96372; 96374; 99285; J1650 ×3; J1940 ×2; J2405; Q9967; G0378

== ENCOUNTER 2017-10-26 06:06 | Day surgery (SDC) | payer OTHER ==
[2017-10-25 13:54] LABS: Protime INR 1.03
[2017-10-25 14:29] LABS: Potassium 4.2 mmol/L (3.5-5.1)
[2017-10-25 15:05] LABS: Blood Morphology Comment ND (NOT SEEN); Platelet Estimate ND; Urine White Blood Cell Casts ND
[2017-10-26 06:07] LABS: Absolute Lymphocytes (CBC) 1.7 K/uL (0.7-4.9); Absolute Monocytes 0.8 K/uL (0.1-1.3); Absolute Neutrophil 3.6 K/uL (1.8-8.0); Basophils % 0.9 % (0-1.3); Eosinophils % 3.3 % (0-4.4); Hematocrit 46.2 % (39.6-49.0); Lymphocytes % 26.8 % (15.3-44.8); MCH 31.5 pg (27.0-35.0); MCV 92.8 fL (80-100); Monocytes % 12.4 % (3.3-12.3); RBC Red Blood Cell Count 4.98 M/uL (4.33-5.43)
[2017-10-26] MEDS ORDERED: LIDOCAINE 1% MPF 5 ML VIAL ONE (06:20)
[2017-10-26] MEDS ORDERED: NA CHLORIDE 0.9% 500 ML ONE (06:21)
[2017-10-26] MEDS ORDERED: MIDAZOLAM HCL 2 MG/2 ML INJ ONE ×2 (07:09→07:30)
[2017-10-26] MEDS ORDERED: FENTANYL CITR 100 MCG/2 ML ONE (07:09)
[2017-10-26] MEDS ORDERED: ATROPINE SULF 1 MG/10 ML SYR IV ONE (07:09)
[2017-10-26] MEDS ORDERED: NA CHLORIDE 0.9% 0 ML ONE (07:09)
[2017-10-26] MEDS ORDERED: HEPA 1000U/500MLS 1,000 UNIT/500 ML BAG IV ONE (07:17)
[2017-10-26] MEDS ORDERED: LIDOCAINE 1% MPF 2 ML AMPULE ONE (07:17)
[2017-10-26] MEDS ORDERED: AMLODIPINE 10 MG TAB PO ONE (09:00)
[2017-10-26 09:09] VITALS: TEMP 97.9
[2017-10-26] MEDS ORDERED: ACETAMINOPHEN 500 MG TAB PO ONE (09:32)
[2017-10-26] MEDS ORDERED: ACETAMINOPHEN 500 MG TAB ONE (09:38)
[2017-10-26 10:18] VITALS: O2SAT 98
[2017-10-26 10:19] VITALS: BP 170/100
--- NOTE | 2017-10-26 11:57 | OP ---
Surgeon: Mamadou Salinas MD He was admitted to my service as an outpatient on 10/26/2017. Reason For Admission: Outpatient heart catheterization. Indication: New onset cardiomyopathy with an ejection fraction of 17%. Mr. Huerta is a 72-year-old white male, new onset CHF, new onset atrial fibrillation, refused Xarelto, refused Entresto. He is on beta-carmen and Lasix and occasionally takes those. He does not believe in medication. I was ab le to convince him to do a heart catheterization to rule out coronary artery disease and he agreed to that. He was given 4 mg of Versed and 25 of fentanyl for IV sedation. He had 6-Czech catheters us ed to do the catheterization, Nicholas catheter 6-Czech, JR4 and JL4. There was no coronary artery d isease. There were no complications. Blood loss was 5 cc. Total conscious sedation was 30 minutes. Operators: Mamadou Salinas MD and Brennan Mendiola. Final Diagnoses: Idiopathic dilated cardiomyopathy, atrial fibrillation, normal coronaries. Plan: Plan is for medical therapy. I will convince him to get on Entresto and Xarelto. I am hoping to do cardioversion on him in about 2-3 weeks and if that does not help his ejection fraction, we sh ould be considering defibrillator down the road. The patient will go home today in 2 hours after bed rest. StarClose was used to close the groin site. ESTEPHANIA/JEREMIAH Voice ID: [id number] Report ID: [id number]
== END 2017-10-26 10:25 | disposition home or self-care (01) ==
LOC: CCL 06:06
PROC: 4A023N7 Measurement of Cardiac Sampling and Pressure, Left Heart, Percutaneous Approach (ICD-10-PCS; principal; 2017-10-26)
PROC: B211YZZ Fluoroscopy of Multiple Coronary Arteries using Other Contrast (ICD-10-PCS; 2017-10-26)
DX: I11.0 Hypertensive heart disease with heart failure (principal); I50.21 Acute systolic (congestive) heart failure; I48.91 Unspecified atrial fibrillation; K21.9 Gastro-esophageal reflux disease without esophagitis; E78.6 Lipoprotein deficiency; I48.92 Unspecified atrial flutter; I42.9 Cardiomyopathy, unspecified
CPT/HCPCS: 36415; 80048; 85025 ×2; 85610; 85730; 93454; 93458; C1893; J2250 ×2; J3010; J0583; J2001

== ENCOUNTER 2017-12-09 06:36 | Day surgery (SDC) | payer OTHER ==
--- NOTE | 2017-12-08 16:46 | RAD REPORT ---
EXAM DESCRIPTION: RAD - Chest Pa And Lat (2 Views) - 12/08/2017 4:26 pm CLINICAL HISTORY: AFib Chest pain. COMPARISON: Chest Pa And Lat (2 Views) dated 10/08/2017; Chest Single View dated 10/07/2017; CHEST SIN GLE VIEW dated 08/16/2014 TECHNIQUE: PA and lateral views of the chest were obtained. FINDINGS: The lungs are hyperexpanded compatible with COPD. The heart is upper limit of normal in si ze. No fracture or aggressive bony process. IMPRESSION: COPD without acute process identified.
[2017-12-08 16:53] LABS: Absolute Lymphocytes (CBC) 1.5 K/uL (0.7-4.9); Absolute Monocytes 0.5 K/uL (0.1-1.3); Absolute Neutrophil 2.9 K/uL (1.8-8.0); Basophils % 0.5 % (0-1.3); Eosinophils % 3.4 % (0-4.4); Hematocrit 44.9 % (39.6-49.0); MCH 31.7 pg (27.0-35.0); MPV 8.6 fL (7.6-11.3); Monocytes % 10.1 % (3.3-12.3); RBC Red Blood Cell Count 4.78 M/uL (4.33-5.43)
[2017-12-08 17:01] LABS: Protime INR 1.22
[2017-12-08 17:09] LABS: Potassium 4.4 mmol/L (3.5-5.1)
[2017-12-09] MEDS ORDERED: NA CHLORIDE 0.9% 500 ML ONE (06:56)
[2017-12-09] MEDS ORDERED: MIDAZOLAM HCL 5 MG/5 ML INJ ONE (07:28)
[2017-12-09] MEDS ORDERED: ATROPINE SULF 1 MG/10 ML SYR IV ONE (07:28)
[2017-12-09 08:28] VITALS: O2SAT 98
[2017-12-09 09:34] VITALS: BP 130/82; TEMP 98
--- NOTE | 2017-12-09 11:04 | EKG ---
Test Date: 2017-12-09 Test Time: 07:55:08 [employer] Member Other Ranks: NAVI MEASUREMENT RESULTS: Intervals: Rate: 53 OH: 210 QRSD: 90 QT: 452 QTc: 424 [place]: P: 34 OH: 210 QRS: 16 T: 106 INTERPRETIVE STATEMENTS: Sinus bradycardia with 1st degree AV block Left ventricular hypertrophy with repolarization abnormality Abnormal ECG Compared to ECG 10/07/2017 14:16:45 First degree AV block now present Early repolarization now present T-wave abnormality no longer present Possible ischemia no longer present Electronically Signed On 12-09-17 11:03:31 CDT by Mamadou Salinas
--- NOTE | 2017-12-10 00:56 | OP ---
Surgeon: Mamadou Salinas MD History Of Present Illness: Mr. Huerta is 72, was admitted as an outpatient to the catheterization lab for a cardioversion. Procedure: Direct current cardioversion. Indication: Atrial flutter. Description Of Procedure: Mr. Huerta received a total of 10 mg of IV push Versed for total consciou s sedation. He received 1 shock of 100 joules of electricity, and it converted to sinus bradycardia. The patient will be continuing his medication including beta-blockers as well as Xarelto. He bette ated the procedure well. There were no complications. Blood loss was none. Total conscious sedatio n was 30 minutes. Final Diagnosis: Status post successful cardioversion of atrial flutter to normal rhythm. Additional Cloth Brushing And Sueding Supervisor: Maggie Valdovinos. ESTEPHANIA/JEREMIAH Voice ID: [id number] Report ID: [id number]
== END 2017-12-09 09:35 | disposition home or self-care (01) ==
LOC: CCL 06:36
DX: I48.91 Unspecified atrial fibrillation (principal); I50.21 Acute systolic (congestive) heart failure; I10 Essential (primary) hypertension; E78.6 Lipoprotein deficiency; K21.9 Gastro-esophageal reflux disease without esophagitis
CPT/HCPCS: 36415; 71046; 80048; 85025; 85610; 85730; 92960; 93005; J2250